=== PATIENT | female | born 1945 | race Caucasian/White ===

== ENCOUNTER 2017-05-20 13:31 | Emergency (ER) | payer OTHER, MEDICAID ==
[~2017-05-20] VITALS: Ht 152.4 cm; Wt 78.0 kg
[2017-05-20 13:31] VITALS: BP_SYST 154
[2017-05-20 16:00] VITALS: BP_SYST 136
== END 2017-05-20 16:00 | disposition home or self-care (01) ==
LOC: SED 13:31
DX: J20.9 Acute bronchitis, unspecified (principal); E11.9 Type 2 diabetes mellitus without complications; I10 Essential (primary) hypertension; E78.00 Pure hypercholesterolemia, unspecified; Z88.1 Allergy status to other antibiotic agents; J45.909 Unspecified asthma, uncomplicated
CPT/HCPCS: 36415; 71045; 86710; 99285

== ENCOUNTER 2019-04-19 17:24 | Emergency (ER) | payer OTHER, MEDICAID ==
[~2019-04-19] VITALS: Ht 152.4 cm; Wt 79.8 kg
--- NOTE | 2019-04-19 17:30 | NUR ---
CATHLEEN David at bedside examining patient.
[2019-04-19 17:46] VITALS: BP_SYST 169
--- NOTE | 2019-04-19 17:46 | NUR ---
Placed in room 02 . Placed on cardiac care nurse, blood pressure machine and pulse oximeter. To gown for exam. Side rails up. Report given to JAMAL BRICENO
--- NOTE | 2019-04-19 17:48 | NUR ---
PATIENT BROUGHT IN BY SON VIA WHEELCHAIR. PATIENT COMPLAINS OF LEFT CHEST PAIN WITH EPIGASTRIC PAIN X 3 DAYS WORSENING. PATIENT REPORTS HAVING DIFFICULTY BURPING AND PAIN WITH INHALATION AND EXHALATION. PAIN 5/10. SON IS AT BEDSIDE. PATIENT IS RWANDAN SPEAKING. NO OTHER COMPLAINTS/INJURIES PER PATIENT OR NOTED. WILL CONTINUE TO MONITOR.
[2019-04-19] MEDS ORDERED: MAG HYDROX/AL HYDROX/SIMETH 30 ML, DICYCLOMINE HCL 20 MG, LIDOCAINE VISCOUS 2% 15ML (PO... PO ONE ×3 (18:00)
--- NOTE | 2019-04-19 18:14 | NUR ---
PATIENT TO RADIOLOGY VIA WHEELCHAIR
[2019-04-19 18:26] LABS: BASOPHILS % (AUTO) 0.3 % (0.0-2.0); EOSINOPHILS # (AUTO) 0.1 K/uL (0.0-0.4); EOSINOPHILS % (AUTO) 0.8 % (0.0-4.0); HEMATOCRIT 34.5 % (36-48); HEMOGLOBIN 11.5 g/dL (12.0-16.0); LYMPHOCYTES # (AUTO) 1.6 K/uL (1.0-5.5); LYMPHOCYTES % (AUTO) 19.8 % (20.5-51.5); MEAN CORPUSCULAR HEMOGLOBIN 27 pg (27-31); MEAN CORPUSCULAR HGB CONC 33 % (32-36); MEAN CORPUSCULAR VOLUME 80 fL (79.0-98.0); MONOCYTES # (AUTO) 0.6 K/uL (0.0-1.0); MONOCYTES % (AUTO) 6.9 % (1.7-9.3); NEUTROPHILS # (AUTO) 5.8 K/uL (1.8-7.7); NEUTROPHILS % (AUTO) 72.2 % (40.0-70.0); PLATELET COUNT (AUTO) 191 K/uL (130-430); RED BLOOD CELL COUNT(AUTO) 4.31 MIL/uL (4.2-6.2); RED CELL DISTRIBUTION WIDTH 16.2 % (9.0-15.0); WHITE BLOOD COUNT (AUTO) 8.1 K/uL (4.8-10.8)
[2019-04-19 18:31] LABS: ANION GAP 11 (5-15); CALCIUM 9.4 mg/dL (8.4-11.0); CHLORIDE 97 mmol/L (98-107); CREATININE 0.86 mg/dL (0.55-1.30); GLUCOSE 245 mg/dL (70-99); POTASSIUM 4.4 mmol/L (3.5-5.1); SODIUM SERUM 135 mmol/L (136-145); UREA NITROGEN, BLOOD 13 mg/dL (8-21)
[2019-04-19 18:44] LABS: ALANINE AMINOTRANSFERASE 31 U/L (12-78); ALBUMIN 3.9 g/dL (3.4-4.8); ASPARTATE AMINOTRANSFERASE 13 U/L (10-37); LIPASE 130 U/L (73-393); TOTAL BILIRUBIN 0.2 mg/dL (0.0-1.0)
[2019-04-19] MEDS ORDERED: LACTULOSE 20 GM/30 ML UDC PO ONE (19:15)
[2019-04-19 19:25] VITALS: BP_SYST 141
--- NOTE | 2019-04-19 19:25 | NUR ---
Patient given written and verbal discharge instructions and verbalizes understanding. ER MD discussed with patient the results and treatment provided. Patient in stable condition. ID arm band removed. IV catheter removed intact and dressing applied, no active bleeding. Rx of Nexium and Miralax given. Patient educated on pain management and to follow up with PMD. Pain Scale 0/10 Opportunity for questions provided and answered. Medication side effect fact sheet provided.
== END 2019-04-19 19:25 | disposition home or self-care (01) ==
LOC: SED 17:24
DX: K29.70 Gastritis, unspecified, without bleeding (principal); K59.00 Constipation, unspecified; E11.9 Type 2 diabetes mellitus without complications; I10 Essential (primary) hypertension; E78.00 Pure hypercholesterolemia, unspecified; J45.909 Unspecified asthma, uncomplicated; K21.9 Gastro-esophageal reflux disease without esophagitis; Z88.1 Allergy status to other antibiotic agents
CPT/HCPCS: 36415; 71045; 74176; 80053; 83690; 83880; 84484; 85025; 93005; 99284; J2001

== ENCOUNTER 2019-05-04 13:12 | Emergency (ER) | payer OTHER, MEDICAID ==
[~2019-05-04] VITALS: Ht 149.9 cm; Wt 81.6 kg
[2019-05-04 13:44] VITALS: BP_SYST 154
--- NOTE | 2019-05-04 13:50 | NUR ---
Patient triaged and placed in waiting room. VSS and patient appears in no acute distress at this time. Awaiting available bed, and MD notified of need for MSE.
--- NOTE | 2019-05-04 14:02 | NUR ---
Pt AAOx4 presents to ED c/o feeling bumps and 5/10 pain in her perineal area x 3 days. Denies bleeding/discharge from site. No other injuries/complaints per pt/noted. Will continue to monitor.
--- NOTE | 2019-05-04 16:50 | NUR ---
Patient to ER bed 7 to gown for evaluation. Side rails up. Report given to JAMAL Crane.
--- NOTE | 2019-05-04 17:17 | NUR ---
ER Dr. Quijano at bedside examining patient.
--- NOTE | 2019-05-04 17:49 | NUR ---
Patient given written and verbal discharge instructions and verbalizes understanding. ER MD Quijano discussed with patient the results and treatment provided. Patient in stable condition. ID arm band removed. Rx of Doxycyline, Neosporin, Tylenol given. Patient educated on pain management and to follow up with PMD. Pain Scale 0. Opportunity for questions provided and answered. Medication side effect fact sheet provided.
[2019-05-04 17:50] VITALS: BP_SYST 133
== END 2019-05-04 17:50 | disposition home or self-care (01) ==
LOC: SED 13:12
DX: L73.8 Other specified follicular disorders (principal); N90.89 Other specified noninflammatory disorders of vulva and perineum; J45.909 Unspecified asthma, uncomplicated; E11.9 Type 2 diabetes mellitus without complications; K21.9 Gastro-esophageal reflux disease without esophagitis; I10 Essential (primary) hypertension; E78.00 Pure hypercholesterolemia, unspecified; Z88.0 Allergy status to penicillin; Z88.2 Allergy status to sulfonamides; Z88.1 Allergy status to other antibiotic agents
CPT/HCPCS: 99283

== ENCOUNTER 2019-05-18 09:07 | Emergency (ER) | payer OTHER ==
[~2019-05-18] VITALS: Ht 152.4 cm; Wt 81.6 kg
[2019-05-18 09:23] VITALS: BP_SYST 165
[2019-05-18 09:45] VITALS: BP_SYST 158
== END 2019-05-18 09:45 | disposition home or self-care (01) ==
LOC: SED 09:07
DX: I10 Essential (primary) hypertension (principal); J45.909 Unspecified asthma, uncomplicated; E11.9 Type 2 diabetes mellitus without complications; K21.9 Gastro-esophageal reflux disease without esophagitis; E78.00 Pure hypercholesterolemia, unspecified; Z88.0 Allergy status to penicillin; Z88.2 Allergy status to sulfonamides; Z88.8 Allergy status to other drugs, medicaments and biological substances
CPT/HCPCS: 99283

== ENCOUNTER 2022-08-16 16:00 | Emergency (ER) | payer OTHER ==
[~2022-08-16] VITALS: Ht 152.4 cm; Wt 71.7 kg
[2022-08-16 16:13] VITALS: BP_SYST 146
[2022-08-16] MEDS ORDERED: FLUT16SP16 NS (16:47)
== END 2022-08-16 17:03 | disposition home or self-care (01) ==
LOC: SED 16:00
DX: H69.93 Unspecified Eustachian tube disorder, bilateral (principal); H92.03 Otalgia, bilateral; K21.9 Gastro-esophageal reflux disease without esophagitis; E11.9 Type 2 diabetes mellitus without complications; I10 Essential (primary) hypertension; J45.909 Unspecified asthma, uncomplicated; Z88.0 Allergy status to penicillin; Z88.1 Allergy status to other antibiotic agents; Z88.8 Allergy status to other drugs, medicaments and biological substances; Z79.899 Other long term (current) drug therapy
CPT/HCPCS: 99283

== ENCOUNTER 2023-10-11 23:05 | Emergency (ER) | payer OTHER ==
[~2023-10-11] VITALS: Ht 152.4 cm; Wt 74.4 kg
[~2023-10-11 23:05] MED LIST: FLUT16SP16 NS
[2023-10-11 23:11] VITALS: BP_SYST 171; PULSE 76; RESP 20; TEMP 97.5; O2SAT 97
[2023-10-11] MEDS ORDERED: ZIT250 PO (23:36)
[2023-10-11 23:41] VITALS: BP_SYST 171; PULSE 76; RESP 20; TEMP 97.5; O2SAT 97
== END 2023-10-11 23:40 | disposition home or self-care (01) ==
LOC: SED 23:05
DX: J02.9 Acute pharyngitis, unspecified (principal); J45.909 Unspecified asthma, uncomplicated; E11.9 Type 2 diabetes mellitus without complications; K21.9 Gastro-esophageal reflux disease without esophagitis; I10 Essential (primary) hypertension; E78.00 Pure hypercholesterolemia, unspecified; Z88.0 Allergy status to penicillin; Z88.1 Allergy status to other antibiotic agents; Z88.2 Allergy status to sulfonamides; Z88.5 Allergy status to narcotic agent; Z79.899 Other long term (current) drug therapy; Z79.2 Long term (current) use of antibiotics
CPT/HCPCS: 99283